=== PATIENT | male | born 1975 | race Caucasian/White ===

== ENCOUNTER 2017-09-19 15:26 | Emergency (ER) | payer OTHER ==
[~2017-09-19] VITALS: Ht 175.3 cm; Wt 150.0 kg
[2017-09-19 15:33] VITALS: BP 180/109; PULSE 120; RESP 20; TEMP 98.9; O2SAT 97
[2017-09-19] MEDS ORDERED: DIAZ2TAB PO (15:42)
[2017-09-19] MEDS ORDERED: FURO1TAB62 PO (15:42)
[2017-09-19] MEDS ORDERED: PERC10TA27 PO (15:42)
[2017-09-19] MEDS ORDERED: LISI10TA PO (15:42)
--- NOTE | 2017-09-19 15:53 | PD ---
HPI Chief Complaint: Psychiatric Symptoms Time Seen by Provider: 15:41 Travel History International Travel<30 days: No Contact w/Intl Traveler<30days: No Traveled to known affect area: No History of Present Illness HPI 42-year-old male was Ward acted for depression and suicidal. Patient states that he posted a poem on Facebook. Patient states that a friend called him today and ask him about depression. Patient admitted to depression to the friend. Patient states that the police came to his residence and Ward acted him and brought him to the ED for evaluation. Patient denies any suicidal ideation. Patient has history hypertension, diabetes, hyperlipidemia. Patient has history COPD. Patient is a smoker. Patient states that he smoked pot once in a while. Patient denies any alcohol or illicit drug abuse. Patient states that he has history of chronic lower extremity pain and on Percocet. Patient also takes Valium occasionally. Patient states that he has not taken his blood pressure medication today. PFSH Past Medical History Cardiovascular Problems: Yes Diabetes: Yes Patient Takes Glucophage: Yes Hypertension: Yes Musculoskeletal: Yes Tetanus Vaccination: < 5 Years Past Surgical History Appendectomy: Yes Social History Alcohol Use: No Tobacco Use: Yes Substance Use: No Allergies-Medications (Allergen,Severity, Reaction): Coded Allergies: Penicillins (Verified Adverse Reaction, Unknown, 09/19/17) Reported Meds & Prescriptions Reported Meds & Active Scripts Active Reported Diazepam 2 Mg Tab 1 Mg PO TID Lasix (Furosemide) 20 Mg Tab 20 Mg PO DAILY Lisinopril-Hctz 10-12.5 Mg Tab 1 Tab PO DAILY Percocet (Oxycodone-Acetaminophen) 10-325 mg Tab 1 Tab PO Q4H PRN Review of Systems General / Constitutional: No: Fever Eyes: No: Visual changes HENT: No: Headaches Cardiovascular: No: Chest Pain or Discomfort Respiratory: No: Shortness of Breath Gastrointestinal: No: Abdominal Pain Genitourinary: No: Dysuria Musculoskeletal: No: Pain Skin: No Rash Neurologic: No: Weakness Psychiatric: No: Depression Endocrine: No: Polydipsia Hematologic/Lymphatic: No: Easy Bruising Physical Exam Narrative GENERAL: Well-nourished, well-developed patient. SKIN: Focused skin assessment warm/dry. HEAD: Normocephalic. EYES: No scleral icterus. No injection or drainage. NECK: Supple, trachea midline. No JVD or lymphadenopathy. CARDIOVASCULAR: Regular rate and rhythm without murmurs, gallops, or rubs. RESPIRATORY: Breath sounds equal bilaterally. No accessory muscle use. GASTROINTESTINAL: Abdomen soft, non-tender, nondistended. MUSCULOSKELETAL: No cyanosis, or edema. BACK: Nontender without obvious deformity. No CVA tenderness. Neurologic exam normal. Data Data Last Documented VS Vital Signs Date Time Temp Pulse Resp B/P (MAP) Pulse Ox O2 Delivery O2 Flow Rate FiO2 09/19/17 15:33 98.9 120 20 180/109 (132) 97 Orders Orders Complete Blood Count With Diff (09/19/17 15:46) Comprehensive Metabolic Panel (09/19/17 15:46) Psych Screen (09/19/17 15:46) Drug Screen, Random Urine (09/19/17 15:46) Clonidine (Catapres) (09/19/17 16:00) Ibuprofen (Motrin) (09/19/17 16:00) MDM Medical Decision Making Medical Screen Exam Complete: Yes Emergency Medical Condition: Yes Differential Diagnosis Differential diagnosis including adjustment disorder, depression, suicidal. Narrative Course 42-year-old male is Ward acted for suicidal and depression ideation. Patient denies any suicidal ideation now. Patient also has history hypertension and has not taking his blood pressure medication today. Clonidine 0.1 mg by mouth given. Yasmani Recinos MD Sep 19, 2017 15:52
[2017-09-19] MEDS ORDERED: cloNIDine HCL 0.1 MG TAB PO ONE (16:00)
[2017-09-19] MEDS ORDERED: IBUPROFEN 600 MG TAB PO ONE (16:00)
[2017-09-19 16:15] VITALS: BP 153/70; PULSE 100; RESP 18; O2SAT 97
[2017-09-19 16:48] LABS: AUTOMATED NEUTROPHIL # 13.5 TH/MM3 (1.8-7.7); BASOPHIL # 0.1 TH/MM3 (0-0.2); BASOPHIL % 0.6 % (0.0-2.0); EOSINOPHIL # 0.1 TH/MM3 (0-0.4); EOSINOPHIL % 0.5 % (0.0-4.0); LYMPH % 9.2 % (9.0-44.0); LYMPHOCYTE # 1.5 TH/MM3 (1.0-4.8); MEAN CELL VOLUME 83.1 FL (80.0-100.0); MEAN CORPUSCULAR HEMOGLOBIN 29.5 PG (27.0-34.0); MEAN CORPUSCULAR HGB CONC 35.5 % (32.0-36.0); MONO % 9.4 % (0.0-8.0); MONOCYTE # 1.6 TH/MM3 (0-0.9); NEUT % 80.3 % (16.0-70.0); PLATELET COUNT 273 TH/MM3 (150-450); RED BLOOD COUNT 5.42 MIL/MM3 (4.50-5.90); WHITE BLOOD COUNT 16.8 TH/MM3 (4.0-11.0)
[2017-09-19 17:00] LABS: ALBUMIN 3.6 GM/DL (3.4-5.0); ALT (GPT) 35 U/L (12-78); AST (GOT) 33 U/L (15-37); BICARBONATE 25.6 MEQ/L (21.0-32.0); BLOOD UREA NITROGEN 22 MG/DL (7-18); CALCIUM 9.1 MG/DL (8.5-10.1); CHLORIDE 102 MEQ/L (98-107); CREATININE 1.36 MG/DL (0.60-1.30); GLOMERULAR FILTRATION RATE 57 ML/MIN (>89); GLUCOSE,RANDOM 175 MG/DL (74-106); SODIUM (NA) 136 MEQ/L (136-145)
[2017-09-19 17:01] LABS: ALKALINE PHOSPHATASE 129 U/L (45-117); TOTAL BILIRUBIN ADULT 0.4 MG/DL (0.2-1.0); TOTAL PROTEIN 8.3 GM/DL (6.4-8.2)
--- NOTE | 2017-09-19 18:00 | PD ---
Physical Exam Narrative GENERAL: SKIN: Warm and dry. HEAD: Atraumatic. Normocephalic. EYES: Pupils equal and round. No scleral icterus. No injection or drainage. ENT: No nasal bleeding or discharge. Mucous membranes pink and moist. NECK: Trachea midline. No JVD. CARDIOVASCULAR: Regular rate and rhythm. RESPIRATORY: No accessory muscle use. Clear to auscultation. Breath sounds equal bilaterally. GASTROINTESTINAL: Abdomen soft, non-tender, nondistended. Hepatic and splenic margins not palpable. MUSCULOSKELETAL: Extremities without clubbing, cyanosis, or edema. No obvious deformities. NEUROLOGICAL: Awake and alert. No obvious cranial nerve deficits. Motor grossly within normal limits. Five out of 5 muscle strength in the arms and legs. Normal speech. PSYCHIATRIC: pt has an agitated mood, and verbally abusive Data Data Last Documented VS Vital Signs Date Time Temp Pulse Resp B/P (MAP) Pulse Ox O2 Delivery O2 Flow Rate FiO2 09/19/17 16:15 100 18 153/70 (97) 97 Room Air 09/19/17 15:33 98.9 Orders Orders Complete Blood Count With Diff (09/19/17 15:46) Comprehensive Metabolic Panel (09/19/17 15:46) Psych Screen (09/19/17 15:46) Drug Screen, Random Urine (09/19/17 15:46) Clonidine (Catapres) (09/19/17 16:00) Ibuprofen (Motrin) (09/19/17 16:00) Labs Laboratory Tests Test 09/19/17 16:05 White Blood Count 16.8 TH/MM3 Red Blood Count 5.42 MIL/MM3 Hemoglobin 16.0 GM/DL Hematocrit 45.0 % Mean Corpuscular Volume 83.1 FL Mean Corpuscular Hemoglobin 29.5 PG Mean Corpuscular Hemoglobin Concent 35.5 % Red Cell Distribution Width 16.0 % Platelet Count 273 TH/MM3 Mean Platelet Volume 9.0 FL Neutrophils (%) (Auto) 80.3 % Lymphocytes (%) (Auto) 9.2 % Monocytes (%) (Auto) 9.4 % Eosinophils (%) (Auto) 0.5 % Basophils (%) (Auto) 0.6 % Neutrophils # (Auto) 13.5 TH/MM3 Lymphocytes # (Auto) 1.5 TH/MM3 Monocytes # (Auto) 1.6 TH/MM3 Eosinophils # (Auto) 0.1 TH/MM3 Basophils # (Auto) 0.1 TH/MM3 CBC Comment AUTO DIFF Differential Comment AUTO DIFF CONFIRMED Platelet Estimate NORMAL Platelet Morphology Comment NORMAL Red Cell Morphology Comment NORMAL Blood Urea Nitrogen 22 MG/DL Creatinine 1.36 MG/DL Random Glucose 175 MG/DL Total Protein 8.3 GM/DL Albumin 3.6 GM/DL Calcium Level 9.1 MG/DL Alkaline Phosphatase 129 U/L Aspartate Amino Transf (AST/SGOT) 33 U/L Alanine Aminotransferase (ALT/SGPT) 35 U/L Total Bilirubin 0.4 MG/DL Sodium Level 136 MEQ/L Potassium Level 4.3 MEQ/L Chloride Level 102 MEQ/L Carbon Dioxide Level 25.6 MEQ/L Anion Gap 8 MEQ/L Estimat Glomerular Filtration Rate 57 ML/MIN [facility] Medical Record Reviewed: Yes Supervised Visit with RAFAEL: No Narrative Course patient has been medically cleared only pending tox screen however patient is not intoxicated/altered mental status at this present time is clinically sober. patient was requesting "pain" medications for his diabetes? i advised this is not treatment for diabetes and that he should be evaluated by psychiatry department while off these medications anyway to get an accurate assessment of his mental status. Diagnosis Primary Impression: medically cleared Additional Impression: Bi Jasmine MD Sep 19, 2017 18:00
[2017-09-19 18:47] VITALS: BP 159/101; PULSE 110; RESP 20; TEMP 98.9; O2SAT 99
--- NOTE | 2017-09-19 20:31 | PD ---
History of Present Illness Chief Complaint: Psychiatric Symptoms Time Seen by Provider: 20:00 Travel History International Travel<30 Days: No Contact w/Intl Traveler<30days: No Known affected area: No Legal Status Legal Status: Ward Act Ward Act Signed By: Patricia Valentine History of Present Illness: 42-year-old male apparently brought in under a Ward act for writing a poem on Facebook which contained "dark" and possibly suicidal thoughts. Patient is calm , pleasant and cooperative. He denies any suicidal or homicidal ideation, plan or intent. He does admit to chronic depression which waxes and wanes. However , he adamantly denies any desire to harm himself. He reports that he writes poems as a way of venting his feelings. A friend apparently became concerned and called the police about him. The police came to his residence and initiated the Ward act. Patient denies suicidality and he verbally contracts for safety. He has no psychotic symptoms and his cognition is intact. He is felt to be competent. PFSH Past Medical History Cardiovascular Problems: Yes Diabetes: Yes Patient Takes Glucophage: Yes Hypertension: Yes Musculoskeletal: Yes Tetanus Vaccination: < 5 Years Past Surgical History Appendectomy: Yes Psychiatric History Psychiatric History Hx Psychiatric Treatment: When asked about previous inpatient admissions, patient responds "I don't have to answer that, it's nobody's business. So, I'm going to go with no." History of Inpatient Treatment: No Guns or firearms in home: No Social History Hx Alcohol Use: No Hx Tobacco Use: Yes Hx Substance Use: Yes Substance Use Type: Marijuana Other Substances Used: reports using marijuana occasionally Hx of Substance Use Treatment: No Allergies-Medications (Allergen,Severity, Reaction): Coded Allergies: Penicillins (Verified Adverse Reaction, Unknown, 09/19/17) Reported Meds & Prescriptions Reported Meds & Active Scripts Active Reported Diazepam 2 Mg Tab 1 Mg PO TID Lasix (Furosemide) 20 Mg Tab 20 Mg PO DAILY Lisinopril-Hctz 10-12.5 Mg Tab 1 Tab PO DAILY Percocet (Oxycodone-Acetaminophen) 10-325 mg Tab 1 Tab PO Q4H PRN Review of Systems Except as stated in HPI: all other systems reviewed are Neg Mental Status Examination Appearance: Appropriate Consciousness: Alert Orientation: x4 Motor Activity: Normal gait Speech: Unremarkable Language: Adequate Fund of Knowledge: Adequate Attention and Concentration: Adequate Memory: Unremarkable Mood: Appropriate Affect: Appropriate Thought Process & Associations: Intact Thought Content: Appropriate Hallucination Type: None Delusion Type: None Suicidal Ideation: No Suicidal Plan: No Suicidal Intention: No Homicidal Ideation: No Homicidal Plan: No Homicidal Intention: No Insight: Adequate Judgment: Adequate MDM Medical Decision Making Medical Record Reviewed: Yes Assessment/Plan Patient interviewed at bedside, medical record reviewed and case discussed with nurse Man. Patient does not meet criteria for Ward act or involuntary psychiatric hospitalization at this time. He is verbally sobia for safety and he is competent to do so. Orders Orders Complete Blood Count With Diff (09/19/17 15:46) Comprehensive Metabolic Panel (09/19/17 15:46) Psych Screen (09/19/17 15:46) Drug Screen, Random Urine (09/19/17 15:46) Clonidine (Catapres) (09/19/17 16:00) Ibuprofen (Motrin) (09/19/17 16:00) Results Vital Signs Date Time Temp Pulse Resp B/P (MAP) Pulse Ox O2 Delivery O2 Flow Rate FiO2 09/19/17 18:47 98.9 110 20 159/101 (120) 99 Room Air 09/19/17 16:15 100 18 153/70 (97) 97 Room Air 09/19/17 15:33 98.9 120 20 180/109 (132) 97 Laboratory Tests Test 09/19/17 16:05 09/19/17 18:05 White Blood Count 16.8 Red Blood Count 5.42 Hemoglobin 16.0 Hematocrit 45.0 Mean Corpuscular Volume 83.1 Mean Corpuscular Hemoglobin 29.5 Mean Corpuscular Hemoglobin Concent 35.5 Red Cell Distribution Width 16.0 Platelet Count 273 Mean Platelet Volume 9.0 Neutrophils (%) (Auto) 80.3 Lymphocytes (%) (Auto) 9.2 Monocytes (%) (Auto) 9.4 Eosinophils (%) (Auto) 0.5 Basophils (%) (Auto) 0.6 Neutrophils # (Auto) 13.5 Lymphocytes # (Auto) 1.5 Monocytes # (Auto) 1.6 Eosinophils # (Auto) 0.1 Basophils # (Auto) 0.1 CBC Comment AUTO DIFF Differential Comment AUTO DIFF CONFIRMED Platelet Estimate NORMAL Platelet Morphology Comment NORMAL Red Cell Morphology Comment NORMAL Blood Urea Nitrogen 22 Creatinine 1.36 Random Glucose 175 Total Protein 8.3 Albumin 3.6 Calcium Level 9.1 Alkaline Phosphatase 129 Aspartate Amino Transf (AST/SGOT) 33 Alanine Aminotransferase (ALT/SGPT) 35 Total Bilirubin 0.4 Sodium Level 136 Potassium Level 4.3 Chloride Level 102 Carbon Dioxide Level 25.6 Anion Gap 8 Estimat Glomerular Filtration Rate 57 Urine Opiates Screen NEG Urine Barbiturates Screen NEG Urine Amphetamines Screen NEG Urine Benzodiazepines Screen POS Urine Cocaine Screen NEG Urine Cannabinoids Screen POS Diagnosis Primary Impression: Adjustment disorder with depressed mood James Rod MD Sep 19, 2017 20:31
== END 2017-09-19 21:11 | disposition home or self-care (01) ==
LOC: NEPD 15:26 → NEPJ 21:11
DX: F43.21 Adjustment disorder with depressed mood (principal); E11.9 Type 2 diabetes mellitus without complications; I10 Essential (primary) hypertension; E78.5 Hyperlipidemia, unspecified; J44.9 Chronic obstructive pulmonary disease, unspecified; F17.200 Nicotine dependence, unspecified, uncomplicated; Z88.0 Allergy status to penicillin; Z79.899 Other long term (current) drug therapy
CPT/HCPCS: 80053; 80307; 85025; 99284